=== PATIENT | male | born 1965 | race Caucasian/White ===

== ENCOUNTER 2019-08-27 07:06 | Day surgery (SDC) | payer OTHER, SELFPAY ==
[2019-08-26 09:04] VITALS: BMI 45.6
[2019-08-27 07:23] VITALS: BP 151/75; PULSE 61; RESP 18; TEMP 36.5; O2SAT 94
[2019-08-27] MEDS: sodium chloride 0.9% 1,000 ML 30 ML IV (07:34)
--- NOTE | 2019-08-27 07:46 | ANES.PREANES ---
Pre-Anesthetic Assessment Pre-Anesthetic Assessment: Height/Weight: Height 1.73 m Weight 136.078 kg Temp Pulse Resp BP Pulse Ox 97.7 F 61 18 151/75 94 08/27/19 07:23 08/27/19 07:23 08/27/19 07:23 08/27/19 07:23 08/27/19 07:23 Preop Diagnosis: Neck mass Proposed Procedure: Operation Date: 08/27/19 08:15 Proposed Procedures p Excision Cyst back of theneck(Not Applicable) - Jorge Suarez MD Was Beta Millie taken within 24 hours: N/A Last intake: Intake Last Liquid Date 08/26/19 Last Liquid Time 22:00 Last Solid Date 08/26/19 Last Solid Time 22:00 Social: Social History: No alcohol and No tobacco Exam: Pre-Anes Outpt Exam: alert, oriented x 3, clear to auscultation bilaterally and regular rate & rhythm Airway: Submandibular: WNL Cervical ROM: WNL MP: 4 Dentition: Full History/ROS: No significant history except as noted and No significant complaints Pulmonary: Pulmonary: Sleep apnea (CPAP ) CV/HEM: CV/HEM: HTN : : None reported Hepatic: Hepatic: None reported GI: GI: None reported Metabolic: Metabolic: None reported Musc/skel: Musc/skel: None reported Neuropsych: Neuropsych: None reported Anesthetic Plan: ASA status: II Anesthesia: MAC Risk of > 500 ml blood loss (7ml/kg in children): No Meds/Allergies Current Medications: Current Medications Generic Name Dose Route Start Last Admin Trade Name Freq PRN Reason Stop Dose Admin Sodium Chloride 1,000 mls @ 30 ml s/hr 08/26/19 18:00 08/27/19 07:34 Sodium Chloride 0.9% IV 08/27/19 17:59 30 mls/hr .Q24H DAVIS Administration PFSH Anesthesia PFSH: Social History (Updated 08/26/19 @ 09:02 by Destiny Butts) Smoking and tobacco status: current every day smoker Quit status (tobacco): not considering quitting Alcohol intake: current Alcohol intake frequency: 0-2 Drinks per Day Substance/Drug Use: never Data Anesthesia Cardiac Studies: No Data to Display
[2019-08-27] MEDS: neomycin-poly-bacitracin oint 28 gm 1 APPLIC TOPICAL (08:38)
--- NOTE | 2019-08-27 08:42 | PM.OP ---
Operative Report Date of procedure: 08/27/19 Preop Diagnosis: Subcutaneous mass on the back of the neck/upper back (suspected sebaceous cyst) Post-op diagnosis: same Procedure Done: 1. Excision of subcutaneous mass from the back of the neck/debridement. 2. Intermediate layered closure of 4.5 cm incision. Specimens removed/disposition: As above. Surgeon: Jorge Suarez Anesthesia: MAC Estimated blood loss (mL): 10 Complications: None. Condition: stable Disposition: same day Procedure: The patient was brought to the operating room and was placed in a left lateral decubitus position on the operating room table. The posterior aspect of the neck and upper back were prepped and draped in a sterile fashion. The lesion had been marked with the patient's assistance preoperatively. A monitored anesthetic was induced. An elliptical incision was carried out around the area of induration and the skin lesion/opening somewhat inferiorly where drainage had been intermittently occurring when the lesion would get infected. The skin and underlying tissue were quite fibrotic. Sharp dissection and cautery was used to dissect around all the abnormal tissue but further granulation tissue was found deep in the wound and somewhat superiorly. This was sharply excised and bluntly debrided with a hemostat/gauze until all of the surrounding tissue appeared to be normal. The wound was extensively irrigated. Palpation revealed no other obvious abnormalities. A definitive cyst wall was never clearly identified. The dermis was closed using multiple inverted interrupted sutures of 2-0 Vicryl. The skin was reapproximated using multiple simple sutures of 3-0 nylon. Some triple antibiotic ointment and a sterile dressing was placed over the wound and the patient was taken to the outpatient recovery area in stable condition postoperatively.
[2019-08-27 08:53] VITALS: BP 136/63; PULSE 67; RESP 18; TEMP 36.4; O2SAT 97
[2019-08-27 09:09] VITALS: BP 150/83; PULSE 60; RESP 18; TEMP 36.4; O2SAT 96
--- NOTE | 2019-10-12 08:31 | W.PM.OPSUD ---
Surgery/Procedure H&P Update DATE OF PROCEDURE: August 27, 2019 DATE H&P PERFORMED: 08/18/19 H&P UPDATE INFORMATION: I have reviewed H&P completed within last 30 days and No changes to prior documentation PREOP DIAGNOSIS: Subcutaneous mass on the back of the neck/upper back (suspected sebaceous cyst) PLANNED PROCEDURE: Operation Date: 08/27/19 08:15 Proposed Procedures p Excision Cyst back of theneck(Not Applicable) - Jorge Suarez MD
== END 2019-08-27 09:20 | disposition home or self-care (01) ==
PROVIDERS: PCP Family Medicine; Visit Provider Surgery
PROC: (CPT 11426; principal; 2019-08-27 08:15)
DX: L72.3 Sebaceous cyst (principal); M19.90 Unspecified osteoarthritis, unspecified site; I10 Essential (primary) hypertension; F17.210 Nicotine dependence, cigarettes, uncomplicated; Z82.49 Family history of ischemic heart disease and other diseases of the circulatory system; Z83.3 Family history of diabetes mellitus
CPT/HCPCS: 11426; 12042; 12345; 88304; J0690; J2001; J2250; J2704; J3010; J3490; J7030

== ENCOUNTER 2022-09-28 08:10 | Outpatient (CLI) | payer OTHER, SELFPAY ==
--- NOTE | 2022-09-28 08:14 | CT_ITS ---
WS: [id number] LDCT LUNG CANCER SCREENING HISTORY: NICOTINE DEPENDENCE, CIGARETTES TECHNIQUE: Axial imaging performed from the apices to 1 cm below the costophrenic angles. Coronal and sagittal reformats are submitted with axial MIP series. All CT scans at [facility] use at least one of these dose optimization techniques: automated exposure control; mA and/or kV adjustment per patient size (includes targeted exams where dose is matched to clinical indication); or iterativ e reconstruction. DLP: 79.71 mGy.cm DIvol: Mean CTDIvol: 1.60 (mGy) COMPARISON: None available. Diagnostic quality: Satisfactory Lung Nodules: No pulmonary nodule or endobronchial lesions. Lungs: Mild pulmonary hyperinflation. Heart: Normal size heart. No pericardial effusion. There are a few scattered coronary artery calcific ations in the LEFT anterior descending coronary. Other findings: Heavily calcified RIGHT paratracheal lymph nodes. Bilateral adrenal adenomas. CT/CT lung screening [id number] IMPRESSION: LUNG-RADS: 1-Negative FOLLOW UP: 12 Month: Continue annual screening with LDCT OTHER FINDINGS (S MODIFIER): None.
== END 2022-09-28 08:11 | disposition home or self-care (01) ==
LOC: RAD 08:12
PROVIDERS: PCP Family Medicine; Visit Provider Family Medicine
DX: Z12.2 Encounter for screening for malignant neoplasm of respiratory organs (principal); F17.210 Nicotine dependence, cigarettes, uncomplicated
CPT/HCPCS: 71271

== ENCOUNTER 2023-11-29 08:45 | Outpatient (CLI) | payer OTHER, SELFPAY ==
--- NOTE | 2023-11-29 08:49 | CT_ITS ---
WS: [id number] LDCT LUNG CANCER SCREENING TECHNIQUE: Noncontrast CT of the chest with coronal and sagittal reformatted images. CLINICAL INFORMATION: NICOTINE DEPENDENCE,CIGARETTES COMPARISON: 09/28/22 DLP: 189.77 mGy.cm DIvol: Mean CTDIvol: 4.20 (mGy) All CT scans at [facility] use at least one of these dose optimization techniques: automat ed exposure control; mA and/or kV adjustment per patient size (includes targeted exams where dose is matched to clinical indication); or iterative reconstruction. FINDINGS: Lungs are well aerated. A few tiny micronodules. No suspicious pulmonary parenchymal opacities. Normal caliber thoracic aorta. Coronary calcification. Calcified paratracheal lymph nodes. Coronary c alcification. No axillary lymphadenopathy. Stable bilateral adrenal adenomas. Splenic granulomas. Hepatomegaly. Small cyst in the dome the liver . Small esophageal hiatal hernia. Mild thoracic curve. Hypertrophic changes thoracic spine. IMPRESSION: CT/CT lung screening [id number] LUNG-RADS: 2-Benign Appearance or Behavior FOLLOW UP: 12 Month: Continue annual screening with LDCT
== END 2023-11-29 08:46 | disposition home or self-care (01) ==
LOC: RAD 08:45
PROVIDERS: PCP Family Medicine; Visit Provider Family Medicine
DX: Z12.2 Encounter for screening for malignant neoplasm of respiratory organs (principal); F17.210 Nicotine dependence, cigarettes, uncomplicated
CPT/HCPCS: 71271

== ENCOUNTER 2024-07-02 10:01 | Outpatient (CLI) | payer OTHER, SELFPAY ==
--- NOTE | 2024-07-02 10:05 | MR_ITS ---
WS: [id number] MRI LUMBAR SPINE NONCONTRAST HISTORY: L SIDE SCIATICA COMPARISON: None available. TECHNIQUE: Sagittal and axial multisequence imaging is submitted. Normal lumbar alignment with no compression fractures or marrow edema. Mild disc base narrowing and desiccation. No marrow edema. Conus terminates normally at L1-2 disc level. L1-L2: Mild facet joint arthritis, slight narrowing of the RIGHT foramen. There is a very small RIGHT lateral disc protrusion. L2-L3: Diffuse annular disc bulging with facet and ligamentum flavum disease. Greater facet joint art hritis on the RIGHT. Mild bilateral subarticular recess encroachment, RIGHT greater than LEFT. L3-L4: Mild annular disc bulge with a RIGHT paracentral disc protrusion contacting the traversing RIG HT L4 nerve root. Bilateral facet joint arthropathy. Mild RIGHT foraminal stenosis. L4-L5: Mild annular disc bulging with a shallow central disc protrusion. Disc encroaches upon the sub articular recesses with contact on the traversing L5 nerve roots. Mild ligamentum flavum and facet roland int arthritis. This is asymmetrically encroaching into the LEFT foramen with mild LEFT foraminal sten osis. L5-S1: Mild annular disc bulging. Broad-based LEFT foraminal disc protrusion effacing foraminal fat. There is contact on the LEFT exiting L5 nerve root. Moderate to severe LEFT foraminal stenosis. No si gnificant contact on the S1 nerve roots. Paravertebral soft tissues are normal. MR/MR lumbar spine wo con* [id number] IMPRESSION: 1. L5-S1: Moderate to severe LEFT foraminal stenosis due to broad-based LEFT f oraminal disc protrusion contacting the LEFT exiting L5 nerve root. 2. L4-5: Shallow central disc protrusion with mild contact on the traversing L 5 nerve roots. Additional mild LEFT foraminal stenosis with slight disc contact on the exiting LEFT L4 nerve root. 3. L3-4: RIGHT paracentral disc protrusion contacting the traversing RIGHT L4 nerve root. Mild RIGHT foraminal stenosis. 4. L2-3: Mild bilateral subarticular recess encroachment. 5. L1-2: Shallow far lateral RIGHT foraminal disc protrusion and mild RIGHT fo raminal stenosis.
== END 2024-07-02 10:02 | disposition home or self-care (01) ==
PROVIDERS: PCP Family Medicine; Visit Provider Family Medicine
DX: M99.63 Osseous and subluxation stenosis of intervertebral foramina of lumbar region (principal); M51.26 Other intervertebral disc displacement, lumbar region; M54.32 Sciatica, left side
CPT/HCPCS: 72148

== ENCOUNTER 2024-11-05 16:40 | Outpatient (CLI) | payer OTHER, SELFPAY ==
--- NOTE | 2024-11-05 16:52 | XR_ITS ---
WS: [id number] Exam: XR lumbar spine 2-3V* [id number] Date/Time of Exam: 11/05/2024 4:52 PM Reason For Exam: arthrodesis status Comparison 05/20/2024. There is posterior fusion of the spine at the L5-S1 with disc spacer. The fusion is in good alignment. No sign of hardware complication. Mild degenerative disc change at the remaining disc levels. Spondylosis. XR/XR lumbar spine 2-3V* [id number] IMPRESSION: 1. Posterior fusion with decompression laminectomy at L5-S1. The fusion is in s atisfactory alignment without complication. 2. Degenerative changes of the lumbar spine. Slight levoscoliosis.
== END 2024-11-05 16:41 | disposition home or self-care (01) ==
PROVIDERS: PCP Family Medicine; Visit Provider Nurse Practitioner Family
DX: Z98.1 Arthrodesis status (principal); M47.896 Other spondylosis, lumbar region
CPT/HCPCS: 72100

== ENCOUNTER 2025-05-18 11:13 | Outpatient (CLI) | payer OTHER, SELFPAY ==
--- NOTE | 2025-05-18 11:29 | XR_ITS ---
WS: [id number] Lumbar spine, 3 views, 05/18/2025 Clinical Data: ARTHRODESIS STATUS/LUMBAR SPONDYLOSIS Comparison: Lumbar spine, 11/05/2024 Findings: No compression fractures or subluxation is seen. There is a posterior lumbosacral fusion with bilateral pedicle screws and connecting rods. There is an artificial disc at L5-S1. An L5 laminectomy is noted. There are degenerative discs at L3-L4 and L4-L5. All the lumbar vertebral bodies have spurs. The transverse processes and SI joints are normal. XR/XR lumbar spine 2-3V* [id number] Impression: 1. Posterior lumbosacral fusion L5-S1. 2. Osteoarthritis of lumbar vertebral bodies L1-L5.
== END 2025-05-18 11:14 | disposition home or self-care (01) ==
PROVIDERS: PCP Family Medicine; Visit Provider Nurse Practitioner Family
DX: M47.816 Spondylosis without myelopathy or radiculopathy, lumbar region (principal); Z98.1 Arthrodesis status; M43.27 Fusion of spine, lumbosacral region; M47.896 Other spondylosis, lumbar region
CPT/HCPCS: 72100